=== PATIENT | male | born 1960 | race African-American/Black ===

== ENCOUNTER 2020-01-15 19:37 | Inpatient (IN) | payer OTHER ==
[~2020-01-15] VITALS: Ht 170.2 cm; Wt 92.7 kg
[2020-01-15] MEDS ORDERED: HYDRALAZINE 20MG/ML VIAL IV ONE (20:30)
[2020-01-15] MEDS: LABETALOL 5MG/ML SYR 20 MG/4 ML SYRINGE IV NR ×2 (20:35→22:41)
[2020-01-15] MEDS ORDERED: *NO ASPIRIN X 24 HOURS XX SCH (21:15)
[2020-01-15] MEDS ORDERED: ALTEPLASE 81 MG in CONTAINER,EMPTY 1 BAG IV SCH (21:15)
[2020-01-15] MEDS ORDERED: ALTEPLASE 100MG/VIAL IV NR (21:15)
[2020-01-15 21:23] LABS: BASOPHILS % 0.6 % (0.0-2.0); EOSINOPHILS % 0.9 % (0.0-5.0); HEMATOCRIT. 37.8 % (42.0-52.0); LYMPHOCYTES % 15.1 % (20.0-50.0); MEAN CORPUSCULAR HEMOGLOBIN 33.9 pg (28.0-32.0); MEAN CORPUSCULAR VOLUME 98.9 fL (80.0-94.0); MEAN PLATELET VOLUME 8.9 fl (7.4-10.4); MONOCYTES % 6.5 % (2.0-8.0); NEUTROPHILS % 76.9 % (40.0-76.0); PLATELET 314 x1000/uL (130-400); RED BLOOD CELL COUNT 3.82 mill/uL (4.7-6.1); RED CELL DISTRIBUTION WIDTH 13.6 % (11.6-14.6)
[2020-01-15 21:31] LABS: CHLORIDE 107 mEq/L (98-107)
[2020-01-15 21:33] LABS: PROTHROMBIN TIME 10.2 sec (9.6-11.0)
[2020-01-15 21:36] LABS: ETHANOL BLOOD < 10 mg/dL
[2020-01-15 21:39] LABS: LDL CHOLESTEROL 79 mg/dL (5-100)
[2020-01-15] MEDS ORDERED: CLONIDINE 0.1MG TABLET PO PRN (21:45)
[2020-01-15] MEDS ORDERED: ACETAMINOPHEN 325MG TABLET PO PRN ×2 (21:45)
[2020-01-15] MEDS ORDERED: ONDANSETRON HCL 4MG/2ML INJ IV PRN (21:45)
[2020-01-15] MEDS ORDERED: IPRATROPIUM/ALBUTEROL 0.5-3(2.5)MG/3ML NEB NEB PRN (21:45)
[2020-01-15] MEDS ORDERED: DOCUSATE SODIUM 100MG CAPSULE PO PRN (21:45)
[2020-01-15] MEDS ORDERED: GUAIFENESIN 200MG/10ML SUGAR FREE UDC PO PRN (21:45)
[2020-01-15] MEDS ORDERED: MAGNESIUM/ALUMINUM HYDROXIDE/SIMETHICONE 30ML UDC PO PRN (21:45)
[2020-01-15] MEDS ORDERED: NITROGLYCERIN 0.4MG TABLET SL SL PRN (21:45)
[2020-01-15 22:12] LABS: T4 FREE 1.17 ng/dL (0.76-1.46)
[2020-01-15 22:17] LABS: CLARITY URINE CLEAR (CLEAR); COLOR URINE YELLOW (YELLOW); KETONES URINE NEGATIVE (NEGATIVE); LEUKOCYTE ESTERASE URINE NEGATIVE (NEGATIVE); NITRITE URINE NEGATIVE (NEGATIVE); OCCULT BLOOD URINE NEGATIVE (NEGATIVE); PH URINE 5.5 (4.5-8.0); PROTEIN URINE NEGATIVE (NEGATIVE); SPECIFIC GRAVITY URINE 1.042 (1.005-1.030); UROBILINOGEN URINE 0.2 E.U./dL (0.2-1.0)
[2020-01-15 22:26] LABS: *AMPHETAMINES SCREEN URINE NEGATIVE (NEGATIVE); *BARBITURATES SCREEN URINE NEGATIVE (NEGATIVE); *BENZODIAZEPINES SCREEN URINE NEGATIVE (NEGATIVE); *COCAINE SCREEN URINE NEGATIVE (NEGATIVE); CANNABINOID URINE SCREEN PRESUMTIVE POSITIVE (NEGATIVE); METHADONE URINE SCREEN NEGATIVE (NEGATIVE); OPIATES URINE SCREEN NEGATIVE (NEGATIVE); PHENCYCLIDINE URINE SCREEN NEGATIVE (NEGATIVE)
[2020-01-15 22:41] LABS: FOLIC ACID (FOLATE) SERUM 11.6 ng/mL (>5.38)
[2020-01-15] MEDS ORDERED: LABETALOL 5MG/ML SYR 20 MG/4 ML SYRINGE IV ONE (22:45)
[2020-01-15] MEDS ORDERED: IOHEXOL-350 100 ML BOTTLE ONE (23:15)
[2020-01-16] VITALS (44 sets, daily range): BP systolic 80–195; BP diastolic 37–124
[2020-01-16 05:51] LABS: CREATINE KINASE 198 IU/L (39-308)
[2020-01-16 05:52] LABS: CREATINE KINASE MB FRACTION < 1.0 ng/mL (0.5-3.6)
[2020-01-16] MEDS: PANTOPRAZOLE SODIUM 40 MG/VIAL IV SCH (09:00)
[2020-01-16 15:00] LABS: CREATINE KINASE 195 IU/L (39-308)
[2020-01-16 15:03] LABS: CREATINE KINASE MB FRACTION < 1.0 ng/mL (0.5-3.6)
[2020-01-16] MEDS ORDERED: ATORVASTATIN CALCIUM 10MG TABLET PO SCH (21:00)
[2020-01-17] VITALS (65 sets, daily range): BP systolic 131–187; BP diastolic 67–121
[2020-01-17] MEDS: PANTOPRAZOLE SODIUM 40 MG/VIAL IV SCH (08:39)
[2020-01-17] MEDS ORDERED: AMLODIPINE 10MG TABLET PO SCH (09:00)
[2020-01-17] MEDS ORDERED: CLOPIDOGREL 75MG TABLET PO SCH (09:00)
[2020-01-17] MEDS ORDERED: FAMOTIDINE 20MG TABLET PO SCH (09:00)
[2020-01-17] MEDS: CLONIDINE 0.1MG TABLET PO PRN ×2 (12:03→19:33)
== END 2020-01-17 20:50 | disposition short-term general hospital (02) | DRG 62 ==
LOC: ER 19:37 → MICUSO 21:32 → EDBEDREQSVC 21:55 → EDBEDREQTM 21:55 → EDBEDREQ 21:55 → MICUNO 01-16 11:57
PROVIDERS: ADMIT Internal Medicine; ATTEND Internal Medicine
DX: I63.9 Cerebral infarction, unspecified (principal); I16.1 Hypertensive emergency; G81.91 Hemiplegia, unspecified affecting right dominant side; R47.81 Slurred speech; F12.90 Cannabis use, unspecified, uncomplicated; I10 Essential (primary) hypertension; I25.10 Atherosclerotic heart disease of native coronary artery without angina pectoris; I25.2 Old myocardial infarction; Z79.82 Long term (current) use of aspirin
CPT/HCPCS: 36415; 70496; 70551; 71045; 80053; 80305; 80320; 81003; 82550; 82553; 82607; 82746; 82962; 83540; 83550; 83721; 84439; 84443; 84484; 85025; 92523; 93005; 93306; 93880; 93970; 97162; 97166; 99291; C9113; J0360; J2997; J3490; J7060; Q9967; G0480